=== PATIENT | male | born 1990 | race Caucasian/White ===

== ENCOUNTER 2021-02-25 16:22 | Emergency (ER) | payer OTHER, SELFPAY ==
--- NOTE | 2021-02-25 16:30 | ED.GENADULT ---
HPI - General Adult General Chief complaint: Unspecified Stated complaint: Rectal Pain Time Seen by Provider: 02/25/21 16:52 Source: patient and RN notes reviewed Mode of arrival: ambulatory Limitations: no limitations History of Present Illness HPI narrative: 31-year-old female presents with concern for rectal pain. She reports 10 days ago she had a rectal intercourse and later began having rectal pain and some bleeding. Reports a rash in the anal area. Reports the rash is painful and not itchy. Denies constipation, straining with bowel movements. Denies history of hemorrhoids. Denies any recent STD testing. Denies any history of herpes. MD complaint: Rectal pain Related Data Allergies Allergy/AdvReac Type Severity Reaction Status Date / Time Penicillins Allergy Unknown Nausea and Verified 02/25/21 16:31 Vomiting Review of Systems Review of Systems: CONSTITUTIONAL: Denies malaise, chills, sweats, or fever. GASTROINTESTINAL: Denies abdominal pain or constipation. Reports rectal pain and small amount of blood on toilet tissue SKIN: Reports painful rectal rash MUSCULOSKELETAL: Denies myalgia. All systems reviewed & are unremarkable except as noted in HPI and below PMFSH Social History Social History Alcohol intake: unknown Substance use: unknown Gender identity (if verbalized by the patient): Transgender Female Spiritual care concerns: No Comments At time of signature, agree with nursing past medical, surgical, social and family history. There is no relevant family history pertinent to the presenting complaint Exam Narrative: GENERAL: Well-appearing, well-nourished, and in no acute distress. HEAD: Normocephalic, atraumatic. EYES: PERRLA, sclera clear ENT: Mucous membranes moist. NECK: Supple. CHEST: No respiratory distress. Speaks in full sentences. HEART: Regular rate and rhythm. SKIN: Warm, dry. [place] perianal vesicular rash noted NEURO: Alert and oriented x3. PSYCH: Normal mood and affect GI: Rectal Exam: normal sphincter tone and Lesions present (GI) (Vesicular perianal rash noted) Other: No internal or external hemorrhoids noted, no trauma or lacerations noted Course Course Emergency Course: Patient is aware of diagnosis, understands and agrees to treatment plan. Anticipatory guidance given. Patient agrees to follow-up as directed and is aware of reasons to seek care at the emergency department. Portions of this record may have been created with voice recognition software Vital Signs Vital signs: Reviewed. Medical Decision Making MDM Narrative Medical decision making narrative: Exam findings show no acute concerns or changes; patient is non-toxic appearing and is in no distress. Patient is appropriate for outpatient treatment and follow-up. Lab Data Labs: Viral herpes simplex culture collected anticipatory guidance given Critical Care Time Critical Care Time Critical Care Time: No Discharge Plan Discharge Clinical Impression: Anal lesion Patient Disposition: Home, Self-Care Condition: Stable Instructions: Genital Herpes Simplex (ED), Safe Sex Practices (ED) Additional Instructions: To maintain soft stools after constipation is releived, you may take Colace 100-200 mg up to three times per day. If you are still straining or having painful bowel movements take Miralax 1 capful twice daily until bowel movements are regular. Maintain fluid intake 6-8 glasses per day. Please increase fibers (fruits and vegetables) in your diet, or use bulk fiber supplements. Decrease or eliminate intake of fast food and junk foods. Apply prescribed cream for pain relief. Make a follow-up appoint with your primary care doctor if symptoms worsen or do not improve. You will receive a phone call with the results of your testing today. You should consider comprehensive STD testing in addition to the testing that was done today. If you have any urgent concerns please go to the emergency room. P
[2021-02-25 16:34] VITALS: BP 120/82; PULSE 70; RESP 16; TEMP 36.3; O2SAT 100
== END 2021-02-25 17:15 | disposition home or self-care (01) ==
PROVIDERS: Emergency Provider Nurse Practitioner
DX: K62.9 Disease of anus and rectum, unspecified (principal); J45.909 Unspecified asthma, uncomplicated
CPT/HCPCS: 87255; 99213; G0463

== ENCOUNTER 2021-02-28 19:43 | Emergency (ER) | payer OTHER, SELFPAY ==
[2021-02-28 20:36] VITALS: BP 142/74; PULSE 73; RESP 16; TEMP 36.4; O2SAT 100
--- NOTE | 2021-02-28 22:09 | ED.GENADULT ---
HPI - General Adult General Chief complaint: Skin/Abscess/Foreign Body Stated complaint: std exposure Time Seen by Provider: 02/28/21 21:53 Source: RN notes reviewed History of Present Illness HPI narrative: Patient presents emergency department from home for a rash. Patient states he has had a rash around his rectum for approximately the past 1 week. He states that the rash did occur after having anal sex he states that he had gone to the urgent care several days ago and they taken cultures not been returned he was given topical lidocaine Aspercreme which she has been using which does help with the pain states the rash has been getting worse and it hurts worse with wiping he denies any fevers or chills abdominal pain nausea vomiting or any other symptoms states the rash does not extend past the rectum Related Data Home Medications Medication Instructions Recorded Confirmed Flexeril 02/25/21 Flovent 02/25/21 albuterol mcg INHALATION 02/25/21 azelastine [Astelin] INTRANASAL 02/25/21 meloxicam 7.5 mg PO DAILY 02/25/21 02/25/21 spironolactone 02/25/21 02/25/21 Allergies Allergy/AdvReac Type Severity Reaction Status Date / Time Penicillins Allergy Unknown Nausea and Verified 02/25/21 16:31 Vomiting Review of Systems Review of Systems: Gen.: Denies fevers or chills ENT: Denies oral lesions Respiratory: Denies shortness of breath CV: Denies chest pain GI: Denies abdominal pain nausea, emesis or diarrhea denies burning, urgency, frequency or hematuria Musculoskeletal: Denies back pain or muscle pain Neuro: Denies numbness, tingling, weakness or focal weakness Skin: See HPI Except as documented, all other systems reviewed and negative [facility] Past Medical History Medical History (Updated 02/28/21 @ 22:13 by Samir Meehan DO) Asthma Social History Social History (Updated 02/28/21 @ 22:10 by Samir Meehan DO) Smoking status: Never smoker Alcohol intake: unknown Substance use: unknown Gender identity (if verbalized by the patient): Transgender Female Spiritual care concerns: No Exam Narrative: APPEARANCE: No acute distress, nontoxic, resting in bed EYES: EOMI HEENT: Normocephalic, atraumatic, OMM RESPIRATORY: No respiratory distress ABDOMINAL: Soft, nontender, nondistended, no rebound or guarding MUSCULOSKELETAl: Moves all extremities. No clubbing, cyanosis or edema. Rectal: No hemorrhoids or fissures erythematous rash with vesicles consistent with herpes around bilateral inguinal region extend perineum NEURO: Awake and alert. Following commands, speech normal, no focal deficits SKIN:: Warm, dry. No rashes lesions or abrasions PSYCHIATRIC: Normal affect/mood, see rectal Course Course Emergency Course: Reviewed previous records patient with herpes culture currently in lab pending Discussed with patient results of workup and diagnosis. Discussed need for follow-up with primary care, proper use of medication, and reasons to return to the emergency department. Patient understands and agrees to current treatment plan Vital Signs Vital signs: Vital Signs Temperature 97.6 F 02/28/21 20:36 Pulse Rate 73 02/28/21 20:36 Respiratory Rate 16 02/28/21 20:36 Blood Pressure 142/74 H 02/28/21 20:36 Pulse Oximetry 100 02/28/21 20:36 Temperature 97.6 F 02/28/21 20:36 Pulse Rate 73 02/28/21 20:36 Respiratory Rate 16 02/28/21 20:36 Blood Pressure 142/74 H 02/28/21 20:36 Pulse Oximetry 100 02/28/21 20:36 Medical Decision Making Vital Signs Vital Signs: Vital Signs Temperature 97.6 F 02/28/21 20:36 Pulse Rate 73 02/28/21 20:36 Respiratory Rate 16 02/28/21 20:36 Blood Pressure 142/74 H 02/28/21 20:36 Pulse Oximetry 100 02/28/21 20:36 Temperature 97.6 F 02/28/21 20:36 Pulse Rate 73 02/28/21 20:36 Respiratory Rate 16 02/28/21 20:36 Blood Pressure 142/74 H 02/28/21 20:36 Pulse Oximetry 100 02/28/21 20:36 Discharg
[2021-02-28] MEDS: valACYclovir HCL 500 MG TABLET 1000 MG PO (22:27)
== END 2021-02-28 22:33 | disposition home or self-care (01) ==
PROVIDERS: Emergency Provider Emergency Medicine
DX: B00.9 Herpesviral infection, unspecified (principal)
CPT/HCPCS: 99283; A9270

== ENCOUNTER 2021-08-22 13:45 | Emergency (ER) | payer OTHER, SELFPAY ==
[2021-08-22 13:56] VITALS: BP 140/89; PULSE 89; RESP 14; TEMP 36.3; O2SAT 97
--- NOTE | 2021-08-22 17:03 | ED.NECK ---
HPI - Neck Pain/Injury General Chief Complaint: Neck Pain/Injury Stated Complaint: neck pain Time Seen by Provider: 08/22/21 16:55 History of Present Illness HPI Narrative: 31-year-old male presents the emergency room with complaints of acute onset of neck pain. Patient states that he is unable to move his neck to the left. Denies injury or trauma. Denies difficulty swallowing. Denies fever. Related Data Home Medications Medication Instructions Recorded Confirmed Flexeril 02/25/21 Flovent 02/25/21 albuterol mcg INHALATION 02/25/21 azelastine [Astelin] INTRANASAL 02/25/21 meloxicam 7.5 mg PO DAILY 02/25/21 02/25/21 spironolactone 02/25/21 02/25/21 Allergies Allergy/AdvReac Type Severity Reaction Status Date / Time Penicillins Allergy Unknown Nausea and Verified 02/25/21 16:31 Vomiting Review of Systems Review of Systems: CONSTITUTIONAL: Denies fever, chills, or sweats. EYES: Denies visual changes, redness, or discharge. ENT: Denies rhinorrhea, congestion, sore throat, or otalgia. CARDIOVASCULAR: Denies chest pain, palpitations, or edema. RESPIRATORY: Denies cough or dyspnea. GASTROINTESTINAL: Denies abdominal pain, nausea, vomiting, or diarrhea. GENITOURINARY: Denies dysuria or hematuria. SKIN: Denies rash or itching. MUSCULOSKELETAL: Reports neck pain NEUROLOGIC: Denies headache, numbness, dizziness, or weakness. PSYCHIATRIC: Denies anxiety or depression. [facility] Past Medical History Medical History Asthma Social History Social History Smoking status: Never smoker Alcohol intake: unknown Substance use: unknown Gender identity (if verbalized by the patient): Transgender Female Spiritual care concerns: No Exam Narrative: GENERAL: Well-appearing, well-nourished, and in no acute distress. HEAD: Normocephalic, atraumatic. EYES: PERRLA and EOMI NECK: Supple. +TTP to left trapezius CHEST: Clear to auscultation. No respiratory distress. No wheezes rales or rhonchi HEART: Regular rate and rhythm. No murmur heard. Normal peripheral pulses. ABDOMEN: Soft, nontender, nondistended, normal active bowel sounds. EXTREMITIES: Normal range of motion. No edema. C-spine: Limited range of motion with rotation and lateral bend; no midline tenderness; no step-offs; no acute bony abnormality SKIN: Warm, dry, no rash. NEURO: No focal deficits. Alert and oriented x3. PSYCH: Normal mood and affect. Course Vital Signs Vital signs: Vital Signs Temperature 36.3 C L 08/22/21 13:56 Pulse Rate 89 08/22/21 13:56 Respiratory Rate 14 08/22/21 13:56 Blood Pressure 140/89 08/22/21 13:56 Pulse Oximetry 97 08/22/21 13:56 Temperature 36.3 C L 08/22/21 13:56 Pulse Rate 89 08/22/21 13:56 Respiratory Rate 14 08/22/21 13:56 Blood Pressure 140/89 08/22/21 13:56 Pulse Oximetry 97 08/22/21 13:56 Discharge Plan Discharge Clinical Impression: Strain of neck muscle Qualifiers: Encounter type: initial encounter Qualified Code(s): S16.1XXA - Strain of muscle, fascia and tendon at neck level, initial encounter Patient Disposition: Home, Self-Care Condition: Stable Instructions: Antibiotic Form, Cervical Strain (ED) Additional Instructions: Discontinue taking the Flexeril at this time while you take the Robaxin. May take Tylenol and ibuprofen as needed for discomfort. Recommend using a heating pad to help relax her muscle. Also encourage you to stretch your neck muscles 3-4 times a day. Prescriptions: New methocarbamol 750 mg tablet 750 mg PO TID Qty: 20 RF: 0 No Action lidocaine 5 % cream 1 applic topical TID PRN (Reason: pain) Qty: 30 RF: 0 meloxicam 7.5 mg Tablet 7.5 mg PO DAILY RF: 0 albuterol 90 mcg/actuation Aerosol INHALATION RF: 0 azelastine [Astelin] 137 mcg (0.1 %) Aerosol,[place] INTRANASAL RF: 0 Flexeril
[2021-08-22 17:10] VITALS: BP 148/93; PULSE 73; RESP 18; TEMP 36.6; O2SAT 98
== END 2021-08-22 17:22 | disposition home or self-care (01) ==
PROVIDERS: Emergency Provider Nurse Practitioner Family
DX: S16.1XXA Strain of muscle, fascia and tendon at neck level, initial encounter (principal); Z87.09 Personal history of other diseases of the respiratory system; Y33.XXXA Other specified events, undetermined intent, initial encounter
CPT/HCPCS: 99283

== ENCOUNTER 2022-01-05 13:33 | Emergency (ER) | payer OTHER, SELFPAY ==
[2022-01-05 13:39] VITALS: BP 134/69; PULSE 76; RESP 16; TEMP 36.4; O2SAT 100
--- NOTE | 2022-01-05 13:48 | ED.SKABFB ---
HPI - Skin/Abscess/Foreign Bdy General Chief complaint: Skin/Abscess/Foreign Body Stated complaint: rash Time Seen by Provider: 01/05/22 13:48 Source: patient Mode of arrival: ambulatory Limitations: no limitations History of Present Illness HPI narrative: 31-year-old female presented for complaint of red itching rash to bilateral thighs for 3 days, now spreading to arms since last night. She has applied [id number] hydrocortisone with minimal relief. Denies change to lotion, soap, detergent etc. 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 Denies lip, tongue or throat swelling/itching, difficulty breathing or wheezing. MD complaint: rash Related Data Home Medications Medication Instructions Recorded Confirmed Flexeril 02/25/21 Flovent 02/25/21 albuterol 90 mcg/actuation aerosol mcg inhalation 02/25/21 inhaler azelastine 137 mcg (0.1 %) nasal intranasal 02/25/21 spray aerosol meloxicam 7.5 mg tablet 7.5 mg PO DAILY 02/25/21 02/25/21 spironolactone 02/25/21 02/25/21 Allergies Allergy/AdvReac Type Severity Reaction Status Date / Time Penicillins Allergy Unknown Nausea and Verified 01/05/22 13:38 Vomiting Review of Systems Review of Systems: CONSTITUTIONAL: Denies body aches, fever, chills, or sweats. EYES: Denies visual changes, redness, or discharge. ENT: Denies rhinorrhea, congestion, sore throat, or otalgia. CARDIOVASCULAR: Denies chest pain, palpitations, or edema. RESPIRATORY: Denies cough or dyspnea. SKIN: reports rash, itching MUSCULOSKELETAL: Denies back pain, joint pain, or myalgia. NEUROLOGIC: Denies headache, numbness, tingling, or weakness. PSYCH: Denies depression or anxiety. [facility] Past Medical History Medical History Asthma Social History Social History Smoking status: Never smoker Alcohol intake: unknown Substance use: unknown Gender identity (if verbalized by the patient): Transgender Female Spiritual care concerns: No Comments At time of signature, I have reviewed and agree with nursing past medical, surgical, social and family history unless otherwise noted. Please see nursing chart for further information. There is no relevant family history pertinent to the presenting complaint Exam Narrative: GENERAL: Well-appearing EYES: conjunctivae clear, and EOMI. ENT: Mucous membranes moist. Oropharynx without edema, erythema or lesions. NECK: Supple. No lymphadenopathy CHEST: Clear to auscultation. HEART: Regular rate and rhythm. SKIN: Warm, dry. Large patches of erythematous maculopapular rash to bilateral inner thighs from groin to knee, right lateral thigh, and small area of rash to bilateral forearms; nontender, no drainagel c/w contact dermatitis NEURO: Alert and oriented x3. PSYCH: Normal mood and affect Course Course Emergency Course: Patient is aware of diagnosis, understands and agrees to treatment plan. Anticipatory guidance given. Patient agrees to follow-up as directed and is aware of reasons to seek care at the emergency department. Portions of this record may have been created with voice recognition software Level of Care: Express Care Visit Vital Signs Vital signs: Vital Signs Temperature 97.6 F 01/05/22 13:39 Pulse Rate 76 01/05/22 13:39 Respiratory Rate 16 01/05/22 13:39 Blood Pressure 134/69 01/05/22 13:39 Pulse Oximetry 100 01/05/22 13:39 Oxygen Delivery Room Air 01/05/22 13:39 Temperature 97.6 F 01/05/22 13:39 Pulse Rate 76 01/05/22 13:39 Respiratory Rate 16 01/05/22 13:39 Blood Pressure 134/69 01/05/22 13:39 Pulse Oximetry 100 01/05/22 13:39 Oxygen Delivery Room Air 01/05/22 13:39 Reviewed MDM - Skin/Abscess/Foreign Bdy MDM Narrative Medical decision making narrative: Does not appear at this time to be erythema multiforme, bullous, SJS, TEN; PE c/w contact dermatitis likely 2
== END 2022-01-05 14:09 | disposition home or self-care (01) ==
PROVIDERS: Emergency Provider Nurse Practitioner Family
DX: L25.9 Unspecified contact dermatitis, unspecified cause (principal); J45.909 Unspecified asthma, uncomplicated
CPT/HCPCS: 99213; G0463

== ENCOUNTER 2022-01-10 13:26 | Emergency (ER) | payer OTHER, SELFPAY ==
[2022-01-10 13:33] VITALS: BP 135/74; PULSE 66; RESP 16; TEMP 31.7; O2SAT 99
--- NOTE | 2022-01-10 13:41 | ED.SKABFB ---
HPI - Skin/Abscess/Foreign Bdy General Chief complaint: Skin/Abscess/Foreign Body Stated complaint: rash Time Seen by Provider: 01/10/22 13:45 Source: patient and RN notes reviewed Mode of arrival: ambulatory Limitations: no limitations History of Present Illness HPI narrative: 31-year-old individual presents with concern for rash. Reports they were seen 5 days ago and diagnosed with contact dermatitis and was prescribed steroid pack, Pepcid, steroid cream. Reports they have been using those medications as prescribed and finish the steroid, is also been taking Zyrtec daily and Benadryl twice daily. Reports the rash is slightly less red but has not lessened in area or itching. Reports the rash on the legs spread slightly. Denies swollen lips, swollen tongue, trouble breathing. 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 MD complaint: rash Related Data Home Medications Medication Instructions Recorded Confirmed albuterol 90 mcg/actuation aerosol 90 mcg inhalation PRN PRN 02/25/21 01/10/22 inhaler difficulty breathing meloxicam 7.5 mg tablet 7.5 mg PO DAILY 02/25/21 01/10/22 cyclobenzaprine 10 mg tablet 10 mg PO DAILY 01/05/22 01/10/22 fluticasone propionate 44 44 mcg inhalation BID 01/05/22 01/10/22 mcg/actuation HFA aerosol inhaler (Flovent HFA) spironolactone 100 mg tablet 100 mg PO BID 01/05/22 01/10/22 Allergies Allergy/AdvReac Type Severity Reaction Status Date / Time Penicillins Allergy Unknown Nausea and Verified 01/10/22 13:36 Vomiting Review of Systems Review of Systems: CONSTITUTIONAL: Denies malaise, chills, sweats, or fever. EYES: Denies redness, or discharge. ENT: Denies rhinorrhea, congestion, swollen lips, swollen tongue CARDIOVASCULAR: Denies chest pain, palpitations, or edema. RESPIRATORY: Denies cough or dyspnea. GASTROINTESTINAL: Denies abdominal pain, nausea, vomiting SKIN: Reports itchy rash on bilateral thighs, arms MUSCULOSKELETAL: Denies joint pain or myalgia. NEUROLOGIC: Denies headache. All systems reviewed & are unremarkable except as noted in HPI and below PMFSH Past Medical History Medical History Asthma Social History Social History Smoking status: Never smoker Alcohol intake: unknown Substance use: unknown Gender identity (if verbalized by the patient): Transgender Female Spiritual care concerns: No Comments At time of signature, agree with nursing past medical, surgical, social and family history. There is no relevant family history pertinent to the presenting complaint Exam Narrative: GENERAL: Well-appearing, well-nourished, and in no acute distress. HEAD: Normocephalic, atraumatic. EYES: PERRLA, conjunctivae clear, and EOMI. ENT: Mucous membranes moist. Oropharynx without edema, erythema or lesions. NECK: Supple. No lymphadenopathy CHEST: Clear to auscultation. No respiratory distress. HEART: Regular rate and rhythm. SKIN: Warm, dry. Raised erythematous confluent rash on the inner thighs with satellite lesions to bilateral inner thighs; raised erythematous confluent rash with satellite lesions to bilateral arms NEURO: Alert and oriented x3. PSYCH: Normal mood and affect Course Course Emergency Course: Solu-Medrol IM given Patient is aware of diagnosis, understands and agrees to treatment plan. Anticipatory guidance given. Patient agrees to follow-up as directed and is aware of reasons to seek care at the emergency department. Portions of this record may have been created with voice recognition software Level of Care: Express Care Visit Vital Signs Vital signs: Vital Signs Temperature 89.0 F L 01/10/22 13:33 Pulse Rate 66 01/10/22 13:33 Respiratory Rate 16 01/10/22 13:33 Blood Pressure 135/74 01/10/22 13:33 Pulse Oximetry 99 01/10/22 13:33 Oxygen Delivery Room Air 01/10/22 13:33 Temper
[2022-01-10] MEDS: methylPREDNISolone SOD SUCC 125 MG VIAL IM (14:02)
== END 2022-01-10 14:20 | disposition home or self-care (01) ==
PROVIDERS: Emergency Provider Nurse Practitioner
DX: R21 Rash and other nonspecific skin eruption (principal); J45.909 Unspecified asthma, uncomplicated
CPT/HCPCS: 96372; 99213; G0463; J2930

== ENCOUNTER 2022-08-03 14:34 | Outpatient (CLI) | payer OTHER, SELFPAY ==
--- NOTE | ~2022-08-03 | XR_ITS ---
EXAMINATION: XR chest 2V 08/03/2022 15:15 INDICATION: Cough PROCEDURE: 2 view chest COMPARISON: No prior studies for comparison. FINDINGS: The lungs are clear. The cardiomediastinal silhouette is within normal limits. There are no pleural effusions. There is no pneumothorax suspected. There is a small benign-appearing exostos is inferior margin of the right clavicle. IMPRESSION: 1: NO ACUTE CARDIOPULMONARY DISEASE. Reviewed, dictated and finalized at location A.
== END 2022-08-03 14:35 | disposition home or self-care (01) ==
PROVIDERS: PCP Internal Medicine; Visit Provider Clinical Nurse Specialist
DX: R05.9 Cough, unspecified (principal); R06.89 Other abnormalities of breathing
CPT/HCPCS: 71046

== ENCOUNTER 2022-08-18 13:21 | Outpatient (CLI) | payer OTHER, SELFPAY ==
--- NOTE | 2022-08-22 10:24 | WPDPFTINT ---
PFT Procedure Performed PFT Procedure Performed Spirometry with Pre/Post Bronchodilator Plethysmography (Lung Vol) Diffusing Cap (DLCO) Flow Vol Loop PFT Interpretation This is a pulmonary function test with pre and post-bronchodilator spirometry, plethysmography and diffusing capacity. The test was performed and results interpreted in accordance with the 2019 and 2005 ATS/ERS Task Force guidelines respectively using the Global Lung Function Initiative-2012 reference equations. Patient demonstrated good effort and cooperation. Reproducibility criteria were met. The quality of the pre bronchodilator spirometry maneuver was Grade A and post bronchodilator spirometry maneuver was Grade A. Findings: Spirometry: The contour the inspiratory and expiratory flow tracing are normal. The pre bronchodilator FVC is 5.77 L, 111% predicted. The pre bronchodilator FEV1 is 4.09 L, 96% predicted. The pre bronchodilator FEV1: FVC ratio 71%. The post bronchodilator FVC is 5.82 L, representing a 1% increase. The post bronchodilator FEV1 is 4.34 L, representing a 6% increase. The post bronchodilator FEV1: FVC ratio 75%. Plethysmography: The total lung capacity 7.47 L, 112% predicted. The functional residual capacity is 3.42 L, 105% predicted. The residual volume is 1.70 L, 105% predicted. Diffusing capacity: The diffusing capacity unadjusted for hemoglobin and carboxyhemoglobin is 28.6, 84% predicted. The diffusing capacity adjusted for alveolar volume is 4.09, 80% predicted. Impression: The spirometry is normal without evidence of an obstructive abnormality. There is no significant improvement after inhaling a single dose of albuterol. The lung volumes are normal. The diffusing capacity is normal. There are no prior studies for comparison
== END 2022-08-18 13:22 | disposition home or self-care (01) ==
LOC: ANHPFT 13:22
PROVIDERS: PCP Internal Medicine; Visit Provider Clinical Nurse Specialist
DX: J45.909 Unspecified asthma, uncomplicated (principal); R06.89 Other abnormalities of breathing; R05.9 Cough, unspecified
CPT/HCPCS: 94060; 94726; 94729

== ENCOUNTER 2022-09-24 09:06 | Outpatient (CLI) | payer OTHER, SELFPAY ==
--- NOTE | 2022-10-13 16:16 | WPDSLEEPSTUD ---
Sleep Study Date of Study: 09/24/22 Ordering Provider: RODOLFO Voss Interpreting Physician: Loree Porter MD Sleep Study Type: Polysomnogram Height: 1.75 m Weight: 96.615 kg Body Mass Index: 31.4 Neck Circumference (inches): 15.5 [place]: 10 Reason for Sleep Study Daytime hypersomnia and restless sleep. Sleep History Yahaira Virk is a 32 year-old [id number] transgender patient who presents to the sleep lab for a sleep study for evaluation of restless sleep. She never awakens at night with heartburn, belching or cough. She constantly snores and frequently snores loudly enough that others complain. She rarely has trouble sleeping when she has a cold. She occasionally sweats excessively at night. She frequently falls asleep during the day and frequently falls asleep involuntarily. She rarely falls asleep while driving. She never experiences loss of muscle tone with strong emotion. She occasionally has trouble at school or work because of sleepiness. She never feels paralyzed on waking or falling asleep. She rarely recalls her dreams. She constantly has thoughts racing through her mind. She occasionally feels sad or depressed. She occasionally feels anxiety or worry about things. She frequently has muscle tension. She rarely has morning jaw pain. She frequently feels bothered by pain during the day and is frequently awakened by pain during the night. She constantly wakes up feeling stiff, sore, and achy in the morning with pain in her neck, spine, or joints. Normal bedtime is around 11 pm on the weekdays and sometimes later on the weekends, taking ?forever? to fall asleep. She gets anywhere from 4 to 12 hours of sleep per night. Her wake up time is around 6:30 am on the weekdays and sometimes later on the weekends. Habits: Former tobacco smoker. She drinks 3 to 5 caffeinated beverages per day. No alcohol or recreational substances. PMFSH Past Medical History Medical History Allergies Anxiety Asthma Headache [id number] transgender person Surgical History Surgical History H/O adenoidectomy Hx of tonsillectomy Family History Family History Mother Alcoholism Cancer Father Alcoholism Hypertension Sibling Asthma Grandparent Cancer Social History Social History Smoking status: Former smoker Alcohol intake: current Alcohol use details: 1-2 drinks, 2-3 x per/week Substance use: never Lack of Transportation: YES Lack of Food: Sometimes True Current Housing: I Have Housing Concerned About Future Housing: No Difficulty Paying Gas/Electric Bills: No Difficulty Paying for Meds: YES Currently Unemployed: No Education: High School Diploma/GED Difficulty w/ Childcare or Family Care: No Living arrangements: with family Occupation/Education: occupation 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 Gender identity (if verbalized by the patient): Transgender Female Spiritual care concerns: No Agree to blood products: Yes Medications Home Medications Medication Instructions Recorded Confirmed Type albuterol sulfate 90 mcg/actuation inhalation 10/03/22 History aerosol inhaler azelastine 137 mcg (0.1 %) nasal intranasal 10/03/22 History spray aerosol doxycycline hyclate 100 mg tablet mg 10/03/22 History fluticasone furoate 100 inhalation 10/03/22 History mcg-vilanterol 25 mcg/dose inhalation powder (Breo Ellipta) prednisone 20 mg tablet mg 10/03/22 History progesterone micronized 100 mg mg 10/03/22 History capsule benzonatate 200 mg capsule 200 mg PO TID PRN cough #20 caps 10/05/22 Rx Sleep Procedure This test was performed using the [employer]Works multiple channel system including EOG, EEG, submental EMG, EKG, nasal and oral airflow usin
[2022-10-13 20:18] VITALS: BMI 31.4
== END 2022-09-25 06:22 | disposition home or self-care (01) ==
LOC: ANHCSM 09:06
PROVIDERS: PCP Internal Medicine; Visit Provider Physician Assistant
DX: G47.10 Hypersomnia, unspecified (principal)
CPT/HCPCS: 95810

== ENCOUNTER 2022-10-03 16:34 | Emergency (ER) | payer OTHER, SELFPAY ==
--- NOTE | ~2022-10-03 | XR_ITS ---
EXAMINATION: XR tibia fibula LT 2V, XR foot LT min 3V DATE: 10/03/2022 17:22 INDICATION: Pain at the medial left tibia and over the dorsum of the left foot after being kicked by and subsequent stepped on by a horse TECHNIQUE: Line 1. Anteroposterior and lateral views of the left tibia and fibula were obtained. 2. Dorsal plantar, lateral and 2 oblique views of the left foot were obtained. COMPARISON: None. FINDINGS: Bone alignment is normal from the left knee through the foot. No fractures. Joint spaces are normal. Soft tissues are unremarkable. IMPRESSION: 1. Negative left foot and tibia/fibular radiographs. Reviewed, dictated and finalized at location A. IMPRESSION: 1. Negative left foot and tibia/fibular radiographs.
[2022-10-03 16:48] VITALS: BP 110/66; PULSE 59; RESP 16; TEMP 36.9; O2SAT 100
--- NOTE | 2022-10-03 17:27 | ED.LOWEXIN ---
HPI - Extremity Injury (Lower) General Chief Complaint: Extremity Injury, Lower Stated Complaint: Left Foot Pain Time Seen by Provider: 10/03/22 17:27 Source: patient, RN notes reviewed and old records reviewed Mode of arrival: ambulatory Limitations: no limitations History of Present Illness HPI Narrative: 32-year-old patient presents to the [facility] with left leg and foot pain after she was kicked by a horse in the leg and it stepped on her foot. Occurred just prior to arrival No treatment prior to arrival Related Data Home Medications Medication Instructions Recorded Confirmed albuterol sulfate 90 mcg/actuation inhalation 10/03/22 aerosol inhaler azelastine 137 mcg (0.1 %) nasal intranasal 10/03/22 spray aerosol doxycycline hyclate 100 mg tablet mg 10/03/22 fluticasone furoate 100 inhalation 10/03/22 mcg-vilanterol 25 mcg/dose inhalation powder (Breo Ellipta) prednisone 20 mg tablet mg 10/03/22 progesterone micronized 100 mg mg 10/03/22 capsule Allergies Allergy/AdvReac Type Severity Reaction Status Date / Time Penicillins Allergy Unknown Nausea and Verified 09/28/22 11:12 Vomiting grass pollen Allergy Itching Verified 10/03/22 16:57 Review of Systems Review of Systems: All systems reviewed & are unremarkable except as noted in HPI and below Constitutional: Constitutional: Reports no additional constitutional complaints Eyes: Eyes: Reports no additional eye complaints ENT: Reports system reviewed and no additional complaints, except as documented Cardiovascular: Cardiovascular: Reports no additional cardiovascular complaints, Denies chest pain and Denies dyspnea Respiratory: Respiratory: Reports no additional respiratory complaints, Denies chest congestion, Denies cough and Denies dyspnea Gastrointestinal: Gastrointestinal: Reports no additional gastrointestinal complaints, Denies abdominal pain, Denies nausea and Denies vomiting Musculoskeletal: Musculoskeletal: Reports as per HPI Integumentary/Breasts: Skin/Breast: Reports as per HPI Neurologic: Reports system reviewed and no additional complaints, except as documented Psychiatric: Psychiatric: Reports no additional psychiatric complaints Allergic/Immunologic: Allergic/Immunologic: Reports no additional allergic/immunologic complaints PMF Past Medical History Medical History Allergies Anxiety Asthma Headache [id number] transgender person Surgical History Surgical History H/O adenoidectomy Hx of tonsillectomy Family History Family History Mother Alcoholism Cancer Father Alcoholism Hypertension Sibling Asthma Grandparent Cancer Social History Social History Smoking status: Former smoker Alcohol intake: current Alcohol use details: 1-2 drinks, 2-3 x per/week Substance use: never Lack of Transportation: YES Lack of Food: Sometimes True Current Housing: I Have Housing Concerned About Future Housing: No Difficulty Paying Gas/Electric Bills: No Difficulty Paying for Meds: YES Currently Unemployed: No Education: High School Diploma/GED Difficulty w/ Childcare or Family Care: No Living arrangements: with family Occupation/Education: occupation 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 There is no relevant family history pertinent to the patient complaint. Exam Const: General: cooperative, healthy appearing, comfortable, no acute distress, well developed, alert and well nourished Nutritional Appearance: well nourishe
[2022-10-03] MEDS: ACETAMINOPHEN 500 MG TABLET 1000 MG PO (17:36)
== END 2022-10-03 18:14 | disposition home or self-care (01) ==
PROVIDERS: Emergency Provider Nurse Practitioner; PCP Internal Medicine
DX: S90.32XA Contusion of left foot, initial encounter (principal); S80.12XA Contusion of left lower leg, initial encounter; W55.12XA Struck by horse, initial encounter; J45.909 Unspecified asthma, uncomplicated; Z87.891 Personal history of nicotine dependence
CPT/HCPCS: 73590; 73630; 99214; A9270; G0463

== ENCOUNTER 2022-10-11 07:48 | Outpatient (CLI) | payer OTHER, SELFPAY | END 2022-10-11 07:49 | disposition home or self-care (01) | PROVIDERS: PCP Internal Medicine; Visit Provider Physician Assistant | DX: R06.09 Other forms of dyspnea (principal) | CPT/HCPCS: 36415; 82785; 86003 ==

== ENCOUNTER 2022-10-13 08:28 | Outpatient (CLI) | payer OTHER, SELFPAY ==
--- NOTE | ~2022-10-13 | NM_ITS ---
NM stress w perf spect multi Procedure: The patient was stressed using Modified Best protocol. Prior to the end of exercise 10.4 mCi Tc 99m IV administered. Rest imaging performed following administration of 33 mCi Tc 99m IV. I mages were reformatted into short axis, horizontal and vertical long axis sections for visual and mahad ntitative analysis. Indication: Dyspnea Comparison: None Findings: Computer assisted qualitative and quantitative analysis of the immediate and delayed images revealed normal left ventricular perfusion without evidence of fixed or reversible perfusion abnorma lity to suggest ischemia or infarction. Normal left ventricular cavity size, wall motion and ejectio n fraction. Left ventricular ejection fraction measures 66%. Impression: 1: No scintigraphic evidence of resting or stress induced perfusion abnormality. 2: Normal left ventricle ejection fraction measuring 66%. Reviewed, dictated and finalized at location B. Impression: 1: No scintigraphic evidence of resting or stress induced perfusion abnormality . 2: Normal left ventricle ejection fraction measuring 66%.
--- NOTE | 2022-10-13 08:41 | EST_ITS ---
Patient Info Name: Yahaira Virk Age: 32 years : 1990 Gender: Male HR: 47 bpm BP: 110 / 60 mmHg Heart Rhythm: Bradycardia Exam Date: 10/13/2022 10:45 AM Exam Location: [facility] Stress Patient Status: Outpatient Admit Date: 10/13/2022 Staff Ordering Physician: Dena Rosario PA-C Attending Provider: Dena Rosario PA-C Exercise Technologist: Yocasta Norman RDCS Exercise Physician: Everett Fishman DO Exam Type: CA stress test treadmill w NM Study Info A nuclear stress test was performed. Summary 1. 1. Negative Best exercise stress test for ischemic ST changes by ECG criteria. 2. 2. Good functional capacity, achieving 13 METs of workload. 3. 3. Appropriate HR response to exercise. 4. 4. Appropriate HR recovery at 1 minute post exercise. 5. 5. Nuclear scan to follow and will be reported separately. Please correlate with it. 6. 6. Patient informed of the above results. Protocol: Best Stress ECG Details Stage: REST Duration (min): 1 min : 16 sec Speed (mph): 0.0 Grade (%): 0 HR (bpm): 50 SBP (mmHg): 110 DBP (mmHg): 60 METS: --- Stage: REST Duration (min): 9 min : 23 sec Speed (mph): 0.0 Grade (%): 0 HR (bpm): 81 SBP (mmHg): 110 DBP (mmHg): 60 METS: --- Stage: STAGE 1 Duration (min): 1 min : 0 sec Speed (mph): 1.7 Grade (%): 10 HR (bpm): 93 SBP (mmHg): 110 DBP (mmHg): 60 METS: --- Stage: STAGE 1 Duration (min): 2 min : 0 sec Speed (mph): 1.7 Grade (%): 10 HR (bpm): 90 SBP (mmHg): 110 DBP (mmHg): 60 METS: --- Stage: STAGE 1 Duration (min): 3 min : 0 sec Speed (mph): 1.7 Grade (%): 10 HR (bpm): 85 SBP (mmHg): 110 DBP (mmHg): 60 METS: --- Stage: STAGE 2 Duration (min): 1 min : 0 sec Speed (mph): 2.5 Grade (%): 12 HR (bpm): 99 SBP (mmHg): 145 DBP (mmHg): 47 METS: --- Stage: STAGE 2 Duration (min): 2 min : 0 sec Speed (mph): 2.5 Grade (%): 12 HR (bpm): 105 SBP (mmHg): 168 DBP (mmHg): 42 METS: --- Stage: STAGE 2 Duration (min): 3 min : 0 sec Speed (mph): 2.5 Grade (%): 12 HR (bpm): 104 SBP (mmHg): 168 DBP (mmHg): 42 METS: --- Stage: STAGE 3 Duration (min): 1 min : 0 sec Speed (mph): 3.4 Grade (%): 14 HR (bpm): 113 SBP (mmHg): 153 DBP (mmHg): 70 METS: --- Stage: STAGE 3 Duration (min): 2 min : 0 sec Speed (mph): 3.4 Grade (%): 14 HR (bpm): 114 SBP (mmHg): 153 DBP (mmHg): 70 METS: --- Stage: STAGE 3 Duration (min): 3 min : 0 sec Speed (mph): 3.4 Grade (%): 14 HR (bpm): 109 SBP (mmHg): 150 DBP (mmHg): 72 METS: --- Stage: STAGE 4 Duration (min): 1 min : 0 sec Speed (mph): 4.2 Grade (%): 16 HR (bpm): 128 SBP (mmHg): 150 DBP (mmHg): 72 METS: --- Stage: STAGE 4 Duration (min): 2 min : 0 sec Speed (mph): 4.2 Grade (%): 16 HR (bpm): 138 SBP (mmHg): 131 DBP (mmHg): 91 METS: ---
== END 2022-10-13 08:29 | disposition home or self-care (01) ==
PROVIDERS: PCP Internal Medicine; Visit Provider Physician Assistant
DX: R06.09 Other forms of dyspnea (principal)
CPT/HCPCS: 78452; 93017; A9502

== ENCOUNTER 2023-12-02 15:17 | Emergency (ER) | payer OTHER, BC, SELFPAY ==
[2023-12-02 15:40] VITALS: BP 136/87; PULSE 54; RESP 18; TEMP 36.9; O2SAT 99
--- NOTE | 2023-12-02 15:58 | ED.GENADULT ---
HPI - General Adult General Chief complaint: Trauma Stated complaint: right face/cheek injury Time Seen by Provider: 12/02/23 15:58 Source: patient Mode of arrival: ambulatory Limitations: no limitations History of Present Illness HPI narrative: 33-year-old transgender female presents to the [facility] with complaints of pain to the right side of the cheek after being kicked by a horse yesterday. Patient denies any loss of consciousness. Patient denies any neck pain or back pain. Patient denies taking any medication for pain. Patient states they are here just to get the cheek ?checked out?. Related Data Home Medications Medication Instructions Recorded Confirmed progesterone micronized 100 mg See Rx Instructions .Route .COMPLEX 10/03/22 12/02/23 capsule estradiol valerate 40 mg/mL 20 mg IM Q14D 11/02/22 12/02/23 intramuscular oil spironolactone 100 mg tablet 200 mg PO DAILY 11/02/22 12/02/23 Allergies Allergy/AdvReac Type Severity Reaction Status Date / Time grass pollen Allergy Intermediate Itching Verified 12/02/23 15:25 Penicillins Allergy Intermediate Nausea and Verified 12/02/23 15:25 Vomiting Review of Systems Review of Systems: CONSTITUTIONAL: Denies fever, chills, or sweats. EYES: Denies visual changes, redness, or discharge. ENT: Denies rhinorrhea, congestion, sore throat, or otalgia. Positive pain to right side cheek bone area CARDIOVASCULAR: Denies chest pain, palpitations, or edema. RESPIRATORY: Denies cough or dyspnea. GASTROINTESTINAL: Denies abdominal pain, nausea, vomiting, or diarrhea. GENITOURINARY: Denies dysuria or hematuria. SKIN: Denies rash or itching. MUSCULOSKELETAL: Denies back pain, joint pain, or myalgia. NEUROLOGIC: Denies headache, numbness, or weakness. PSYCHIATRIC: Denies anxiety or depression. [facility] Past Medical History Medical History Allergies Anxiety Asthma Headache Czmm-js-xesifc transgender person Surgical History Surgical History H/O adenoidectomy Hx of tonsillectomy Family History Family History Mother Alcoholism Cancer Father Alcoholism Hypertension Sibling Asthma Grandparent Cancer Social History Social History Smoking status: Former smoker Alcohol intake: current Alcohol use details: 1-2 drinks, 2-3 x per/week Substance use: never Lack of Transportation: YES Lack of Food: Sometimes True Current Housing: I Have Housing Concerned About Future Housing: No Difficulty Paying Gas/Electric Bills: No Difficulty Paying for Meds: YES Currently Unemployed: No Education: High School Diploma/GED Difficulty w/ Childcare or Family Care: No Living arrangements: with family Occupation/Education: occupation 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 There is no relevant family history pertinent to the presenting complaint. Exam Narrative: GENERAL: Well-appearing, well-nourished, and in no acute distress. HEAD: Normocephalic, atraumatic. No bruising or swelling noted to the face. Patient does have an audible click to both TMJs areas which patient states that is normal. EYES: PERRLA and EOMI. ENT: Nares clear, no rhinorrhea or epistaxis. Mucous membranes moist. NECK: Supple, no lymphadenopathy. No surface trauma, no soft tissue or muscle tenderness or spasm noted. Trachea midline. No subq emphysema or crepitus. No jessi tenderness, step-offs or deformity to firm Palpation at posterior midline. FROM without limitation or pain, normal flexion, extension,Lateral bending, rotation,
== END 2023-12-02 16:24 | disposition home or self-care (01) ==
PROVIDERS: Emergency Provider Nurse Practitioner Family; PCP Clinical Nurse Specialist
DX: S09.93XA Unspecified injury of face, initial encounter (principal); W55.12XA Struck by horse, initial encounter; Z87.891 Personal history of nicotine dependence; J45.909 Unspecified asthma, uncomplicated
CPT/HCPCS: 99212; G0463